=== PATIENT | female | born 1985 | race Asian ===

== ENCOUNTER 2018-05-10 05:52 | Inpatient (IN) ==
[2018-05-10] MEDS ORDERED: Morphine Sulfate PF Inj 5 MG/10 ML Ampul ONE (06:21)
[2018-05-10] MEDS ORDERED: Citric Acid/Sodium Citrate Liq 30 ML UDC PO SCH (06:45)
[2018-05-10 06:49] LABS: White Blood Count 8.4 th/mm3 (4.0-11.0)
[2018-05-10 06:50] LABS: Baso % (Auto) 0.5 % (0.0-2.0); Eos % (Auto) 0.6 % (0.0-4.0); Hematocrit 39.3 % (35.0-46.0); Hemoglobin 13.1 gm/dL (11.6-15.3); Lymph # (Auto) 1.6 th/mm3 (1.0-4.8); Lymph % (Auto) 19.7 % (9.0-44.0); Mean Corpuscular HGB Conc 33.4 % (32.0-36.0); Mean Corpuscular Hemoglobin 31.5 pg (27.0-34.0); Mean Corpuscular Volume 94.3 fL (80.0-100.0); Mean Platelet Volume 10.1 fL (7.0-11.0); Mono # (Auto) 0.6 th/mm3 (0.0-0.9); Mono % (Auto) 6.7 % (0.0-8.0); Neut # (Auto) 6.1 th/mm3 (1.8-7.7); Neut % (Auto) 72.5 % (16.0-70.0); Platelet Count 199 th/mm3 (150-450); Red Blood Count 4.17 mil/mm3 (4.00-5.30); Red Cell Distribution Width 15.5 % (11.6-17.2)
[2018-05-10 06:57] LABS: Bilirubin,Urine Negative (Negative); Clarity,Urine Clear (Clear); Color,Urine Yellow (Yellw/Straw); Glucose,Urine (UA) Negative (Negative); Leukocyte Esterase,Urine Negative (Negative); Mucus,Urine Few /lpf (Occasional); Nitrite,Urine Negative (Negative); Squamous Epithelial Cell,Urine 1 /hpf (0-5)
[2018-05-10] MEDS ORDERED: ceFAZolin Inj 2,000 MG in Sodium Chlor 0.9% Inj 80 ML IV.SIG SCH (07:00)
[2018-05-10 07:02] LABS: Amphetamine Screen,Urine Neg (Neg); Barbiturate Screen,Urine Neg (Neg); Cannabinoid Screen,Urine Neg (Neg); Cocaine Screen,Urine Neg (Neg); Opiate Screen,Urine Neg (Neg)
--- NOTE | 2018-05-10 07:14 | P.OBGPN ---
searched the PDMP, no matching pt information identified
[2018-05-10] MEDS ORDERED: Methylergonovine Inj 0.2 MG/ML Ampul ONE (08:13)
[2018-05-10 08:50] LABS: Cord Arterial Blood HCO3 21.6
[2018-05-10] MEDS ORDERED: Oxytocin 30 Units/500ml Premix 30 UNITS/500 ML BAG IV.SIG ONE (09:12)
[2018-05-10] MEDS ORDERED: Acetaminophen 325 MG Tablet PO PRN (09:12)
--- NOTE | 2018-05-10 09:20 | P.OP ---
Date of procedure: 05/10/18 Surgeon: Vipin Ansari MD Operation and Findings: Preoperative diagnosis: 1. Intrauterine at 39 weeks and 1 day 2. Unstable lie 3. Large lower uterine segment fibroid 4. GBS positive Postop diagnosis 1. Same as above with additional: 2. hemorrhage Procedure 1. Primary classical section, vacuum assisted delivery. Surgeon Dr. Vipin Ansari Automatic Mounter: [facility] labor and delivery scrub staff Findings: 1. Viable male at 0810, Apgars 2 and 8, normal anatomy. Umbilical arterial and venous cord gases collected and pending. 2. Intact placenta with three-vessel cord at 0811 3. Large intramural 10-12 cm right lateral lower uterine segment solitary fibroid Anesthesia: Spinal with Astramorph Specimen: Placenta donated Estimated blood loss: 1.5 L Fluid replacement: - 2500 cc lactated Ringer's and Pitocin -2 units of PRBCs Urine output: 200 cc clear urine Via [place] DVT prophylaxis: Sequential compression devices throughout the case Antibiotics: 2 g Ancef preoperatively Medications: 0.2 mg IM methargen 1 Counts: correct x2 Time out done: yes Disposition: Stable to PACU then to Indications: 33-year-old G1 now P1 001 who seen in outpatient setting for routine OB care by myself and had a fetus that was unstable in its lie, given the large lower uterine segment fibroid and concern for obstructed labor and complications that could arise with an emergent in labor the patient was counseled for a primary . Description of procedure: The patient was taken to the operating room and after spinal anesthesia was performed she was positioned and supine position with arms out in a left lateral tilt, the abdomen was prepped and draped in sterile fashion, a Pfannenstiel incision was made and carried down sharply to the fascia which was nicked on either side of the midline, this was extended bilaterally, the fascia was elevated superiorly and inferiorly and the rectus muscles were sharply dissected off the overlying fascia, the peritoneum was entered digitally and retracted laterally. A bladder flap was developed with Metzenbaum scissors at the lower uterine segment. After assessing the lower uterine segment I felt harinder this would not be the most optimal place to make her hysterotomy due to the high likelihood for difficult closure and increased morbidity, a classical incision was made sharply with a scalpel layer by layer. The uterine cavity was entered digitally and amniotic sac was ruptured bluntly. Inserted my hand the hysterotomy and the fetus was in a piked position head and feet both presenting. I had difficulty guiding the head to the hysterotomy with fundal pressure, a flat Kiwi vacuum was applied to the scalp and with gentle traction elevated to the hysterotomy with no pop offs. At this time with fundal pressure the head was delivered. With gentle downward and upward guidance the anterior and posterior shoulder was delivered, followed by the torso and lower extremities with ease, the had poor tone, the cord was clamped and cut and cord gases obtained. [place] handed off to to the staff. Pitocin was bolused and with uterine massage and cord traction the placenta was delivered, uterus was cleared of clot and debris, poor tone was appreciated and 1 dose of IM methargen was given, the uterus was exteriorized and the hysterotomy was closed in layers. From the lower uterine segment cephalad was closed with 3 layers of 3-0 Vicryl in the running unlocked fashion and the serosa closed with 3-0 chromic. The vertical lower uterine segment portion was closed with 2 layers of 0 Vicryl in a running unlocked fashion. The serosa was not closed as it was to far by the fibroid. The abdomen and hysterotomy were irrigated, inspected, and found to be hemostatic, fracture reassurance a Bovie and sheet of Surgicel was placed over the lower uterine segment. The fascia was closed from left to right with 0 running delayed absorbable suture. The subcutaneous tissue was irrigated, inspected, hemostasis was appreciated. The skin was closed with 3-0 Monocryl and then a dressing was applied and the patient tolerated procedure well was transferred to PACU. ]
--- NOTE | 2018-05-10 09:29 | P.OBGPN ---
Received call from nursing in PACU stating that patient has noticeable cardiac arrhythmia, per the nurse, anesthesia appreciated this prior to while in the OR. I was not aware of this during or after the case the patient has no prior cardiac history. Patient's vitals are stable and doing well in PACU and has no complaints out of the ordinary after a . Will consult cardiology and obtain an EKG. Patient received 2 units of blood Intra-Op, will type and cross for an additional 2 if needed.
[2018-05-10] MEDS ORDERED: Ketorolac Inj 30 MG/ML (IVP) Vial ONE (10:36)
[2018-05-10] MEDS: Ketorolac Inj 30 MG/ML (IVP) Vial IV.PUSH SCH ×3 (10:40→23:02)
[2018-05-10] MEDS ORDERED: Oxytocin 30 Units/500ml Premix 30 UNITS/500 ML BAG ONE (10:52)
[2018-05-10 10:53] LABS: Hematocrit 44.7 % (35.0-46.0); Hemoglobin 15.2 gm/dL (11.6-15.3); Mean Corpuscular HGB Conc 34.1 % (32.0-36.0); Mean Corpuscular Hemoglobin 31.1 pg (27.0-34.0); Mean Corpuscular Volume 91.3 fL (80.0-100.0); Mean Platelet Volume 10.3 fL (7.0-11.0); Platelet Count 193 th/mm3 (150-450); Red Blood Count 4.89 mil/mm3 (4.00-5.30); Red Cell Distribution Width 15.7 % (11.6-17.2); White Blood Count 13.7 th/mm3 (4.0-11.0)
[2018-05-10 11:08] LABS: Anion Gap 6 meq/L (5-15); Blood Urea Nitrogen 7 mg/dL (7-18); Calcium 8.1 mg/dL (8.5-10.1); Carbon Dioxide 26.9 meq/L (21.0-32.0); Chloride 108 meq/L (98-107); Glomerular Filtration Rate Greater Than 89 mL/min (>89); Glucose,Random 108 mg/dL (74-106); Potassium 4.5 meq/L (3.5-5.1); Sodium 141 meq/L (136-145)
[2018-05-10 11:14] LABS: Activated Partial Thrombo Time 28.1 sec (24.3-30.1); Prothrombin Time 9.7 sec (9.8-11.6)
[2018-05-10] MEDS ORDERED: Naloxone Inj 0.4 MG/ML Vial IV.PUSH PRN (11:23)
[2018-05-10] MEDS ORDERED: Lidocaine PF 1% Inj 5 ML Syringe INFILTRATN ONE (12:00)
[2018-05-10] MEDS ORDERED: Sodium Chlor 0.9% Inj 500 ML IV.SIG ONE (12:00)
[2018-05-10] MEDS ORDERED: Phenylephrine/NS 1000 MCG/10ML Syringe IV.PUSH ONE (12:00)
--- NOTE | 2018-05-10 12:39 | ECG ---
Date Performed: 05/10/2018 Time Performed: 10:07:49 PTAGE: 33 years EKG: Sinus rhythm WITH FREQUENT VENTRICULAR PREMATURE COMPLEXES LEFT ATRIAL ENLARGEMENT ABNORMAL ECG NO PREVIOUS TRACING DOCTOR: Louis Torres Interpretating Date/Time 05/10/2018 12:36:16
[2018-05-10] MEDS ORDERED: Oxytocin 30 Units/500ml Premix 30 UNITS/500 ML BAG IV.SIG PRN (14:12)
--- NOTE | 2018-05-10 14:16 | P.CONCA ---
History of Present Illness Service: [facility] cardiology Consult date: 05/10/18 Requesting Physician: Vipin Ansari Reason for Consult: arrhythmia Primary Care Provider: UNKNOWN Chief Complaint: abnormal ecg History of Present Illness: Patient is non-Bulgarian speaking and we used a Latvian language line for HPI. 33 yo lady with unremarkable past medical history who delivered new baby via uncomplicated earlier this morning was noted by staff to have a "cardiac arrhythmia." Apparently this was noted by anesthesia prior to delivery this am as well. ECG reveals NSR with ventricular quadrigeminy with no st-t wave abnormality. QTc is normal. Patient is awake and comfortable and has no complaints. She was initially upon arrival. She denies any palpitations, chest pain, dyspnea or syncope in history or current. Laboratories from yesterday are unremarkable with K+ 4.5 and normal labs by report including thyroid function. No family history of cardiovascular disease. She is a lifelong nonsmoker and no alcohol. Review of Systems All other systems reviewed negative except as stated in HPI Medications and Allergies Active Medications: Active Medications Acetaminophen (Tylenol) 650 mg PO Q6H PRN PRN Reason: PAIN SCALE 1 TO 2 Citric Acid/Sodium Citrate (Sodium Citrate/Citric Acid Liq) 30 ml PO PLUMBING INSTRUCTOR [facility] Stop: 05/14/18 06:44 Last Admin: 05/10/18 07:31 Dose: 30 ml Diphenhydramine HCl (Benadryl Inj) 25 mg IV.PUSH Q6H PRN PRN Reason: MILD TO MODERATE ITCHING Stop: 05/11/18 11:22 Diphenhydramine HCl (Benadryl) 50 mg PO Q6H PRN PRN Reason: MILD TO MODERATE ITCHING Stop: 05/11/18 11:22 Diphtheria/Pertussis/Tetanus Vacc (Boostrix Vaccine Inj) 0.5 ml IM .ONCE ONE Stop: 05/11/18 16:01 Cefazolin Sodium 2,000 mg/ (Sodium Chloride) 100 mls @ 200 mls/hr IV.SIG PLUMBING INSTRUCTOR [facility] Stop: 05/14/18 08:00 Lactated Ringer's (Lr 1000 Ml Inj) 1,000 mls @ 150 mls/hr IV.CONT .Q6H40M [facility] Last Admin: 05/10/18 06:54 Dose: 150 mls/hr Lactated Ringer's (Lr 1000 Ml Inj) 1,000 mls @ 100 mls/hr IV.CONT .Q10H [facility] Stop: 05/11/18 10:11 Oxytocin (Pitocin 30 Units/Ns 500 Ml Premix) 30 units in 500 mls @ 100 mls/hr IV.SIG ONCE ONE Stop: 05/10/18 14:11 Last Admin: 05/10/18 11:18 Dose: 100 mls/hr Oxytocin (Pitocin 30 Units/Ns 500 Ml Premix) 30 units in 500 mls @ 100 mls/hr IV.SIG PRN PRN PRN Reason: Heavy bleeding Stop: 05/11/18 14:11 Ibuprofen (Motrin) 800 mg PO Q8H PRN PRN Reason: cramping Ketorolac Tromethamine (Toradol Inj) 30 mg IV.PUSH Q6H [facility] Stop: 05/11/18 04:01 Last Admin: 05/10/18 10:40 Dose: 30 mg Magnesium Oxide (Mag-Ox) 400 mg PO DAILY [facility] Measles/Mumps/Rubella Vaccine Live (M-M-R Ii Vaccine Inj) 0.5 ml SQ .ONCE ONE Stop: 05/11/18 16:01 Miscellaneous Information ([facility]) 1 each OTHER UNSCH PRN PRN Reason: SEE LABEL COMMENTS Stop: 05/11/18 11:22 Miscellaneous Information ([facility]) 1 each OTHER UNSCH PRN PRN Reason: SEE LABEL COMMENTS Stop: 05/11/18 11:22 Naloxone HCl (Narcan Inj) 0.4 mg IV.PUSH UNSCH PRN PRN Reason: SEE LABEL COMMENTS Stop: 05/11/18 11:22 Ondansetron HCl (Zofran Inj) 4 mg IV.PUSH Q6H PRN PRN Reason: NAUSEA OR VOMITING Oxycodone/Acetaminophen (Percocet 5/325 Mg) 1 tab PO Q4H PRN PRN Reason: PAIN SCALE 3 TO 5 Oxycodone/Acetaminophen (Percocet 5/325 Mg) 2 tab PO Q4H PRN PRN Reason: PAIN SCALE 6 TO 10 Sodium Chloride (Ns Flush) 2 ml IV.FLUSH PRN PRN PRN Reason: FLUSH AFTER USING IV ACCESS Sodium Chloride (Ns Flush) 2 ml IV.FLUSH BID [facility] Allergies Allergy/AdvReac Type Severity Reaction Status Date / Time No Known Allergies Allergy Unverified 05/10/18 06:08 Home Medications Medication Instructions Recorded Confirmed Type No Known Home Medications 05/10/18 05/10/18 History Exam Vital signs: Vital Signs 05/10/18 06:13 05/10/18 06:14 05/10/18 09:25 Temperature 97.9 F 96.6 F L Pulse Rate 78 89 Respiratory Rate 18 16 Blood Pressure 115/41 L 105/65 05/10/18 09:36 05/10/18 09:54 05/10/18 10:05 Temperature Pulse Rate 97 H 98 H 99 H Respiratory Rate 16 18 18 Blood Pressure 96/55 L 107/65 115/65 05/10/18 10:22 05/10/18 10:34 05/10/18 10:40 Temperature 98.1 F Pulse Rate 98 H 96 H Respiratory Rate 18 18 Blood Pressure 120/69 110/57 L 05/10/18 11:25 Temperature 98.0 F Pulse Rate 77 Respiratory Rate 18 Blood Pressure 108/55 L Intake & Output 05/09/18 05/10/18 05/10/18 18:59 06:59 18:59 Intake Total 400 / 400 Balance 400 / 400 Weight 76.204 kg Intake: Intake (Blood Product) Amt 400 / 400 Rbc As-3 Leukoreduced Unit 400 / 400 [id number] Rbc As-3 Leukoreduced Unit 0 / 0 [id number] Narrative: GENERAL: AOx3, comfortable appearing, speaking full sentences. Talley cath in place SKIN: Warm and dry. HEAD: Atraumatic. Normocephalic. EYES: Pupils equal and round. No scleral icterus. No injection or drainage. ENT: No nasal bleeding or discharge. Mucous membranes pink and moist. NECK: Trachea midline. No JVD. CARDIOVASCULAR: Regularly irregular rhythm with regular rate, no murmur, rub or gallops. RESPIRATORY: No accessory muscle use. Clear to auscultation. Breath sounds equal bilaterally. NEUROLOGICAL: Awake and alert. No obvious cranial nerve deficits. Normal speech. PSYCHIATRIC: Appropriate mood and affect; insight and judgment normal. Results 05/10/18 10:30 05/10/18 10:30 Coagulation 05/10/18 Range/Units 10:30 PT 9.7 L (9.8-11.6) sec APTT 28.1 (24.3-30.1) sec CBC 05/10/18 05/10/18 Range/Units 06:26 10:30 WBC 8.4 13.7 H D (4.0-11.0) th/mm3 RBC 4.17 4.89 (4.00-5.30) mil/mm3 Hgb 13.1 15.2 D (11.6-15.3) gm/dL Hct 39.3 44.7 (35.0-46.0) % Plt Count 199 193 (150-450) th/mm3 Neut # (Auto) 6.1 (1.8-7.7) th/mm3 Lymph # (Auto) 1.6 (1.0-4.8) th/mm3 Ray # (Auto) 0.6 (0.0-0.9) th/mm3 Eos # (Auto) 0.0 (0.0-0.4) th/mm3 Baso # (Auto) 0.0 (0.0-0.2) th/mm3 Comprehensive Metabolic Panel 05/10/18 Range/Units 10:30 Sodium 141 (136-145) meq/L Potassium 4.5 (3.5-5.1) meq/L Chloride 108 H (98-107) meq/L Carbon Dioxide 26.9 (21.0-32.0) meq/L BUN 7 (7-18) mg/dL Creatinine 0.49 L (0.50-1.00) mg/dL Calcium 8.1 L (8.5-10.1) mg/dL Intake and Output 05/09/18 05/10/18 05/10/18 22:59 06:59 14:59 Intake Total 400 / 400 Balance 400 / 400 Intake: Intake (Blood Product) Amt 400 / 400 Rbc As-3 Leukoreduced Unit 400 / 400 [id number] Rbc As-3 Leukoreduced Unit 0 / 0 [id number] Other: Weight 76.204 kg Assessment and Plan - Plan Assessment: Ventricular Quadrigeminy - this is a benign rhythm. Typically stress induced and self-resolving. Will obtain a transthoracic echocardiogram to rule out structural heart disease. May start supplemental magnesium oxide 400mg daily and repeat TFTs. If studies are normal, no further evaluation is warranted. Will notify patient of echocardiogram results and otherwise will sign off for now. Please call with any further questions.
[2018-05-10 14:44] LABS: Magnesium 1.7 mg/dL (1.5-2.5)
[2018-05-10 14:53] LABS: Thyroid Stimulating Hormone 2.29 uIU/mL (0.358-3.740)
[2018-05-10] MEDS: Magnesium Oxide 400 MG Tablet PO SCH (15:59)
[2018-05-11] MEDS: Ketorolac Inj 30 MG/ML (IVP) Vial IV.PUSH SCH (04:25)
[2018-05-11 05:55] LABS: Hematocrit 33.2 % (35.0-46.0); Hemoglobin 11.4 gm/dL (11.6-15.3); Mean Corpuscular HGB Conc 34.2 % (32.0-36.0); Mean Corpuscular Volume 90.6 fL (80.0-100.0); Platelet Count 167 th/mm3 (150-450); Red Blood Count 3.67 mil/mm3 (4.00-5.30); Red Cell Distribution Width 16.5 % (11.6-17.2)
--- NOTE | 2018-05-11 06:40 | MH ---
cc: Vipin Ansari MD DATE OF ADMISSION: 05/10/2018 CHIEF COMPLAINT: Scheduled section. HISTORY OF PRESENT ILLNESS: This patient is a 33-year-old G1, who will be at 40 weeks and 1 day at the time of her admission. She is dated by her sure LMP, consistent with a 13-week ultrasound with estimated due date of 05/09/2018. Any changes or additions to this H and P will be added as a separate note at the time of her admission. Her has been complicated by a lower uterine segment fibroid, varicella virus nonimmune status and glucose intolerance. To note, she speaks Micronesian and her translates for her. PAST MEDICAL HISTORY: 1. Uterine Fibroid MEDICATIONS: vitamins. ALLERGIES: NKDA. PAST SURGICAL HISTORY: Appendectomy. OBSTETRICAL HISTORY: G1. 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 SEXUALLY TRANSMITTED DISEASES: The patient denies. SOCIAL HISTORY: The patient denies. FAMILY HISTORY: No pertinent positive family history. PHYSICAL EXAMINATION: Based on the encounter from 05/08/2018: VITAL SIGNS: Blood pressure 100/60, weight 166 pounds. GENERAL: Alert and oriented x3, resting in the bed. LUNGS: Clear to auscultation bilaterally. CARDIOVASCULAR: Regular rate and rhythm. No murmurs, rubs or gallops. ABDOMEN: Soft, gravid, nontender. GENITOURINARY: Deferred. EXTREMITIES: No clubbing, cyanosis or edema. LABORATORY DATA: 1. Blood work on 11/02/2017: Hemoglobin of 14.2, platelets 299. Blood type A positive, antibody negative, varicella nonimmune, rubella immune, VDRL nonreactive, HIV negative, cystic fibrosis screen negative. Hepatitis B surface antigen negative. Cystic fibrosis screen negative, quad screen negative. TSH 0.50. Sickle cell screen negative, Pap smear, negative. 2. Repeat blood work on 02/21/2018: Hemoglobin 12.2, one-hour Glucola 166; followup 3-hour Glucola 81,190,141,122. 3. GBS positive. ASSESSMENT AND PLAN: This patient is a 33-year-old G1 who will be at 40 weeks and 1 day by her LMP consistent with a 13-week ultrasound with estimated due date of 05/09/2018, here for primary due to malpresentation. 1. Intrauterine . Will be placed on monitoring upon admission. - estimated weight on 04/24/2018: 3326 grams, 75th percentile, placenta posterior male fetus. 2. malpresentation/uterine fibroid: Large 9 cm left lower uterine segment fibroid appreciated throughout her . No growth. Most recent ultrasound on 05/08/2018 revealed stability of the fibroid, but fetus in a breech oblique position. We discussed options and the patient elected for primary . I feel this is the best and safest option for her. Will be scheduled for primary on 05/10/2018. Discussed risks, benefits and expected outcomes for . We will type and cross x2 on admission. 3. Group beta streptococcus positive, irrelevant given . 4. Varicella nonimmune, vaccine . MD MANAV Low/malia/jah , 12:03 PM , 12:13 PM NEHA
--- NOTE | 2018-05-11 07:59 | P.PNOB ---
Subjective Post op day: 1 Interval history: Doing well, pain controlled, ambulating without difficulty, voiding spontaneously, tolerating diet. Vaginal bleeding less than menses. Objective Vital Signs/I&O: Vital Signs 05/10/18 09:25 05/10/18 09:36 05/10/18 09:54 Temperature 96.6 F L Pulse Rate 89 97 H 98 H Respiratory Rate 16 16 18 Blood Pressure 105/65 96/55 L 107/65 05/10/18 10:05 05/10/18 10:22 05/10/18 10:34 Temperature 98.1 F Pulse Rate 99 H 98 H Respiratory Rate 18 18 Blood Pressure 115/65 120/69 05/10/18 10:40 05/10/18 11:25 05/10/18 16:10 Temperature 98.0 F Pulse Rate 96 H 77 56 L Respiratory Rate 18 18 16 Blood Pressure 110/57 L 108/55 L 106/51 L 05/10/18 18:30 05/10/18 20:00 05/10/18 21:30 Temperature 98.3 F Pulse Rate 56 L 61 Respiratory Rate 20 18 18 Blood Pressure 93/50 L 106/63 05/10/18 23:10 05/11/18 02:00 05/11/18 04:00 Temperature 97.5 F L 98.8 F Pulse Rate 67 57 L Respiratory Rate 18 16 16 Blood Pressure 99/49 L 100/55 L Intake & Output 05/10/18 05/11/18 05/11/18 18:59 06:59 18:59 Intake Total 400 / 400 Balance 400 / 400 Intake: Intake (Blood Product) Amt 400 / 400 Rbc As-3 Leukoreduced Unit 400 / 400 [id number] Rbc As-3 Leukoreduced Unit 0 / 0 [id number] Result Diagrams: 05/11/18 05:31 05/10/18 10:30 Objective Remarks: GENERAL: Well-nourished, well-developed patient. CARDIOVASCULAR: Regular rate and rhythm without murmurs, gallops, or rubs. RESPIRATORY: Breath sounds equal bilaterally. No accessory muscle use. ABDOMEN/GI: Abdomen soft, non-tender, bowel sounds present. Bandage: Clean, dry and intact. Fundus: Firm, non-tender at umbilicus. GENITOURINARY: Light to moderate bleeding. EXTREMITIES: No cyanosis or edema, non-tender, without signs of DVT. Medications and IVs: Active Medications Acetaminophen (Tylenol) 650 mg PO Q6H PRN PRN Reason: PAIN SCALE 1 TO 2 Citric Acid/Sodium Citrate (Sodium Citrate/Citric Acid Liq) 30 ml PO [facility] Stop: 05/14/18 06:44 Last Admin: 05/10/18 07:31 Dose: 30 ml Diphenhydramine HCl (Benadryl Inj) 25 mg IV.PUSH Q6H PRN PRN Reason: MILD TO MODERATE ITCHING Stop: 05/11/18 11:22 Diphenhydramine HCl (Benadryl) 50 mg PO Q6H PRN PRN Reason: MILD TO MODERATE ITCHING Stop: 05/11/18 11:22 Diphtheria/Pertussis/Tetanus Vacc (Boostrix Vaccine Inj) 0.5 ml IM .ONCE ONE Stop: 05/11/18 16:01 Cefazolin Sodium 2,000 mg/ (Sodium Chloride) 100 mls @ 200 mls/hr IV.SIG [facility] Stop: 05/14/18 08:00 Lactated Ringer's (Lr 1000 Ml Inj) 1,000 mls @ 150 mls/hr IV.CONT .Q6H40M [facility] Last Admin: 05/11/18 06:45 Dose: Not Given Lactated Ringer's (Lr 1000 Ml Inj) 1,000 mls @ 100 mls/hr IV.CONT .Q10H [facility] Stop: 05/11/18 10:11 Last Admin: 05/10/18 19:05 Dose: 100 mls/hr Oxytocin (Pitocin 30 Units/Ns 500 Ml Premix) 30 units in 500 mls @ 100 mls/hr IV.SIG PRN PRN PRN Reason: Heavy bleeding Stop: 05/11/18 14:11 Ibuprofen (Motrin) 800 mg PO Q8H PRN PRN Reason: cramping Magnesium Oxide (Mag-Ox) 400 mg PO DAILY [facility] Last Admin: 05/10/18 15:59 Dose: 400 mg Measles/Mumps/Rubella Vaccine Live (M-M-R Ii Vaccine Inj) 0.5 ml SQ .ONCE ONE Stop: 05/11/18 16:01 Miscellaneous Information ([facility]) 1 each OTHER UNSCH PRN PRN Reason: SEE LABEL COMMENTS Stop: 05/11/18 11:22 Miscellaneous Information ([facility]) 1 each OTHER UNSCH PRN PRN Reason: SEE LABEL COMMENTS Stop: 05/11/18 11:22 Naloxone HCl (Narcan Inj) 0.4 mg IV.PUSH UNSCH PRN PRN Reason: SEE LABEL COMMENTS Stop: 05/11/18 11:22 Ondansetron HCl (Zofran Inj) 4 mg IV.PUSH Q6H PRN PRN Reason: NAUSEA OR VOMITING Oxycodone/Acetaminophen (Percocet 5/325 Mg) 1 tab PO Q4H PRN PRN Reason: PAIN SCALE 3 TO 5 Oxycodone/Acetaminophen (Percocet 5/325 Mg) 2 tab PO Q4H PRN PRN Reason: PAIN SCALE 6 TO 10 Last Admin: 05/11/18 06:41 Dose: 2 tab Sodium Chloride (Ns Flush) 2 ml IV.FLUSH PRN PRN PRN Reason: FLUSH AFTER USING IV ACCESS Sodium Chloride (Ns Flush) 2 ml IV.FLUSH BID [facility] Last Admin: 05/10/18 23:04 Dose: Not Given Assessment and Plan - Plan 33-year-old status post primary classical at 39 weeks 0 days secondary to large lower uterine segment fibroid and unstable lie 1. Postoperative day #1: Afebrile, vital signs stable, and hemoglobin noted and appropriate. Will repeat CBC tomorrow. Patient shows no signs of hypovolemia at this time. She did receive 2 units intraoperatively yesterday due to concern for excessive blood loss however I believe this was an overestimate. Anticipate d/c home in next 48hrs. -Male , discussed options for circumcision, they did not pay, offered circumcision the office in the next 2-3 weeks. They will call if they desire. 2. Classical : Discussed implications on her future pregnancies and requirement for at 36-37 weeks, 3. Fibroid uterus: Discussed that may recommend removal of fibroid to allow easier access to lower uterine segment with future pregnancies 4. Ventricular quadrigeminy: Patient had palpitations at time of her admission yesterday, her heart rate is normalized now, normal EKG other than aforementioned, TFTs and BMP WNL, status post cardiology consult, echo planned for today.
[2018-05-11] MEDS: Magnesium Oxide 400 MG Tablet PO SCH (10:57)
--- NOTE | 2018-05-11 13:43 | ECHRPT ---
Indication: CARDIOMYOPATHY CONCLUSIONS Normal left ventricular size. Wall thickness is normal. The left ventricular systolic function is mildly reduced with an estimated ejection fraction of 45%. Global hypokinesis. Trace mitral valve regurgitation. There is trace tricuspid valve regurgitation. The estimated pulmonary arterial pressure is 24 mmHg. BP: / HR: Rhythm: Other MEASUREMENTS (Male / Female) Normal Values Technical Quality: 2D ECHO LV Diastolic Diameter PLAX 5.0 cm 4.2 - 5.9 / 3.9 - 5.3 cm LV Systolic Diameter PLAX 3.5 cm IVS Diastolic Thickness 0.8 cm 0.6 - 1.0 / 0.6 - 0.9 cm LVPW Diastolic Thickness 0.8 cm 0.6 - 1.0 / 0.6 - 0.9 cm LV Relative Wall Thickness 0.3 RV Internal Dim ED PLAX 3.3 cm LVOT Diameter 1.9 cm LA Systolic Diameter LX 3.7 cm 3.0 - 4.0 / 2.7 - 3.8 cm LV Ejection Fraction MOD 4C 68.8 % LV Ejection Fraction 4C AL 69.3 % M-MODE Aortic Root Diameter MM 1.3 cm LA Systolic Diameter MM 3.7 cm LA Ao Ratio MM 2.8 AV Cusp Separation MM 1.8 cm DOPPLER AV Peak Velocity 136.0 cm/s AV Peak Gradient 7.4 mmHg LVOT Peak Velocity 110.0 cm/s LVOT Peak Gradient 4.8 mmHg AV Area Cont Eq pk 2.3 cm MV Area PHT 3.6 cm Mitral E Point Velocity 110.0 cm/s Mitral A Point Velocity 67.1 cm/s Mitral E to A Ratio 1.6 LV E' Lateral Velocity 11.7 cm/s Mitral E to LV E' Lateral Ratio 9.4 LV E' Septal Velocity 9.0 cm/s Mitral E to LV E' Septal Ratio 12.3 TR Peak Velocity 193.0 cm/s TR Peak Gradient 14.9 mmHg Right Atrial Pressure 10.0 mmHg Pulmonary Artery Systolic Pressu 24.9 mmHg Right Ventricular Systolic Press 24.9 mmHg PV Peak Velocity 115.0 cm/s PV Peak Gradient 5.3 mmHg FINDINGS LEFT VENTRICLE Normal left ventricular size. Wall thickness is normal. The left ventricular systolic function is mildly reduced with an estimated ejection fraction of 45%. Global hypokinesis. RIGHT VENTRICLE Normal right ventricular size and systolic function. LEFT ATRIUM The left atrial size is normal. RIGHT ATRIUM The right atrial size is normal. ATRIAL SEPTUM Normal atrial septal thickness without atrial level shunting by limited color doppler interrogation. AORTA The aortic root and proximal ascending aorta are normal in size on limited imaging. MITRAL VALVE Structurally normal mitral valve. Trace mitral valve regurgitation. AORTIC VALVE The aortic valve is not well visualized. No aortic valve stenosis or regurgitation. TRICUSPID VALVE Structurally normal tricuspid valve. There is trace tricuspid valve regurgitation. The estimated pulmonary arterial pressure is 24 mmHg. PULMONARY VALVE Trivial pulmonary valve regurgitation. VESSELS The inferior vena cava is normal in size. PERICARDIUM No pericardial effusion. Klaus Roger MD (Electronically Signed) Final Date:11 May 2018 13:42
[2018-05-11] MEDS ORDERED: Measles/Mumps/Rubella Vaccine Inj 0.5 ML Vial SQ ONE (16:00)
[2018-05-11] MEDS ORDERED: Diphtheria/Tetanus/Pertussis Vaccine Inj 0.5 ML Syringe IM ONE (16:00)
[2018-05-12 06:32] LABS: Hematocrit 33.6 % (35.0-46.0); Hemoglobin 11.4 gm/dL (11.6-15.3); Mean Corpuscular HGB Conc 34.1 % (32.0-36.0); Mean Corpuscular Hemoglobin 31.2 pg (27.0-34.0); Mean Corpuscular Volume 91.5 fL (80.0-100.0); Platelet Count 181 th/mm3 (150-450); Red Blood Count 3.67 mil/mm3 (4.00-5.30); Red Cell Distribution Width 16.6 % (11.6-17.2); White Blood Count 9.6 th/mm3 (4.0-11.0)
--- NOTE | 2018-05-12 07:46 | P.PNOB ---
Subjective Post op day: 2 Interval history: Doing well, pain improving, vaginal bleeding less than menses, ambulating without difficulty, no chest pain, shortness of breath, orthopnea. Tolerating diet without nausea or vomiting. Objective Vital Signs/I&O: Vital Signs 05/11/18 08:00 05/11/18 20:00 Temperature 97.8 F 98.1 F Pulse Rate 83 43 L Respiratory Rate 18 18 Blood Pressure 107/51 L 105/45 L Result Diagrams: 05/12/18 06:09 05/10/18 10:30 Objective Remarks: GENERAL: Well-nourished, well-developed patient. CARDIOVASCULAR: Regular rate and rhythm without murmurs, gallops, or rubs. RESPIRATORY: Breath sounds equal bilaterally. No accessory muscle use. ABDOMEN/GI: Abdomen soft, non-tender, bowel sounds present. Bandage Clean, dry and intact. Fundus: Firm, non-tender at umbilicus. GENITOURINARY: Light to moderate bleeding. EXTREMITIES: No cyanosis or edema, non-tender, without signs of DVT. Medications and IVs: Active Medications Acetaminophen (Tylenol) 650 mg PO Q6H PRN PRN Reason: PAIN SCALE 1 TO 2 Citric Acid/Sodium Citrate (Sodium Citrate/Citric Acid Liq) 30 ml PO PHYSICAL OPTICS TEACHER [facility] Stop: 05/14/18 06:44 Last Admin: 05/10/18 07:31 Dose: 30 ml Cefazolin Sodium 2,000 mg/ (Sodium Chloride) 100 mls @ 200 mls/hr IV.SIG [employer]ICAL OPTICS TEACHER [facility] Stop: 05/14/18 08:00 Lactated Ringer's (Lr 1000 Ml Inj) 1,000 mls @ 150 mls/hr IV.CONT .Q6H40M [facility] Last Admin: 05/12/18 07:37 Dose: Not Given Ibuprofen (Motrin) 800 mg PO Q8H PRN PRN Reason: cramping Last Admin: 05/12/18 07:33 Dose: 800 mg Magnesium Oxide (Mag-Ox) 400 mg PO DAILY [facility] Last Admin: 05/11/18 10:57 Dose: 400 mg Ondansetron HCl (Zofran Inj) 4 mg IV.PUSH Q6H PRN PRN Reason: NAUSEA OR VOMITING Oxycodone/Acetaminophen (Percocet 5/325 Mg) 1 tab PO Q4H PRN PRN Reason: PAIN SCALE 3 TO 5 Last Admin: 05/11/18 10:57 Dose: 1 tab Oxycodone/Acetaminophen (Percocet 5/325 Mg) 2 tab PO Q4H PRN PRN Reason: PAIN SCALE 6 TO 10 Last Admin: 05/12/18 07:33 Dose: 2 tab Sodium Chloride (Ns Flush) 2 ml IV.FLUSH PRN PRN PRN Reason: FLUSH AFTER USING IV ACCESS Sodium Chloride (Ns Flush) 2 ml IV.FLUSH BID MARTÍN Last Admin: 05/12/18 07:35 Dose: Not Given Assessment and Plan - Plan 33-year-old status post primary classical at 39 weeks 0 days secondary to large lower uterine segment fibroid and unstable lie 1. Postoperative day #2: Afebrile, vital signs stable, AM Hb appropriate. Anticipate d/c home tomorrow Male , circ in office, they did not pay 2. Classical : Discussed implications on her future pregnancies and requirement for at 36-37 weeks, 3. Fibroid uterus: Discussed that may recommend removal of fibroid to allow easier access to lower uterine segment with future pregnancies 4. Ventricular quadrigeminy: Patient had palpitations at time of her admission , her heart rate is mostly normal, some episodes of bradycardia, patient asymptomatic. Her echo showed EF of 45%, will touch base with cardiology to make sure the do not suggest any intervention, Dx for cardiomyopathy is less than 45% - normal EKG other than aforementioned, TFTs and BMP WNL,
[2018-05-12] MEDS: Magnesium Oxide 400 MG Tablet PO SCH (09:08)
--- NOTE | 2018-05-12 10:01 | P.PNCA ---
Subjective Interval history: Unremarkable recovery thus far. No interval events. Physical Exam Vital signs: Vital Signs 05/11/18 20:00 05/12/18 08:00 Temperature 98.1 F 98.3 F Pulse Rate 43 L 60 Respiratory Rate 18 20 Blood Pressure 105/45 L 104/58 L Assessment and Plan - Plan Assessment: Ventricular Quadrigeminy - this is a benign rhythm. Typically stress induced and self-resolving. Will obtain a transthoracic echocardiogram to rule out structural heart disease. Continue supplemental magnesium oxide 400mg daily. No further evaluation is warranted at this time. Recommend f/u evaluation of ventricular ectopy with PCP or cardiology in next few weeks as an outpatient after she recovers. Patient had echocardiogram which was read as Mildly depressed LVEF 45%. I have reviewed the echocardiogram myself and disagree with this assessment. LVEF calculated by Ibarra's byplane method was 57.9% which visually looks correct. I believe that this low EF was reported due to visual estimation in a post-PVC beat as the patient has frequent ventricular ectopy. She has frequent sinus bradycardia and low-normal BP and thus will defer beta- shayna therapy at this time as there is currently no clear clinical benefit as the patient is also asymptomatic.
[2018-05-13] MEDS: Magnesium Oxide 400 MG Tablet PO SCH (09:08)
--- NOTE | 2018-05-13 09:30 | P.DS ---
Date of admission: 05/10/18 05:52 Primary care physician: UNKNOWN Brief History from admission: 33-year-old who underwent a scheduled primary classical at 39 weeks due to malpresentation and large lower uterine segment fibroid. Intraoperatively she received 2 units of blood, postoperatively she did well. She did have cardiac arrhythmia that was appreciated at time of her admission, she was asymptomatic, she was seen by cardiology and she was diagnosed with ventricular quadrigeminy, she had an echocardiogram that was normal. Plan per cardiology was to have her followup several weeks DS: Medications - Discharge Medications Prescriptions: ibuprofen [Motrin IB] 600 mg PO TID-QID PRN #30 tab PRN Reason: Pain oxycodone-acetaminophen [Percocet] 1 tab PO Q4-6H PRN #15 tab PRN Reason: Pain DS: Summary Hospital Course: See brief history - Time Spent with Patient Total time spent providing and/or coordinating discharge services: Less than 30 minutes Exam Vital signs: Vital Signs 05/12/18 20:00 Temperature 98.0 F Pulse Rate 82 Respiratory Rate 17 Blood Pressure 118/73 Results Procedures completed during hospitalization: Primary classical Labs on day of discharge: Labs from last 24 hours 05/10/18 09:25 MTS Gel Crossmatch See Detail Discharge Plan - Discharge Disposition Patient Disposition: 01 Discharge Home - Discharge Condition Condition: Good - Discharge Order Discharge Orders: Discharge Order (Routine); Ordered 05/13/18 Ordered By: Vipin Ansari - Discharge Details Anticipated Discharge Date: 05/13/18 - Physicians Team Primary Care Provider: UNKNOWN, Attending Provider: Vipin Ansari Other Providers: Santy Benito MD - Rxs /Orders / Referrals /Forms Prescriptions: New ibuprofen [Motrin IB] 200 mg Tablet 600 mg PO TID-QID PRN (Reason: Pain) Qty: 30 RF: 1 oxycodone-acetaminophen [Percocet] 5-325 mg Tablet 1 tab PO Q4-6H PRN (Reason: Pain) Qty: 15 RF: 0 No Action No Known Home Medications Referrals: Vipin Ansari MD [Physician] - See Instructions - Discharge Instructions Patient Printed Instructions: (DC) - Post Discharge Care Plan Care Plan Goals: Congratulations on your new baby! We want your recovery to be de [place] and trouble free. Please Report the Following Symptoms to Your Doctor: -Temperature above 100.5 degrees -Redness of incision or excessive or foul smelling drainage -Unusual pain or calf pain -Increased vaginal bleeding -Painful or difficulty urinating -Feelings of extreme sadness or anxiety Goals to Promote Your Health * To prevent worsening of your condition and complications * To maintain your health at the optimal level Directions to Meet Your Goals Take your medications as prescribed Follow your dietary instruction Follow activity as directed Ensure plenty of rest for recovery Drink fluids for hydration Keep your appointments as scheduled Take your immunizations and boosters as scheduled If your symptoms worsen call your OB Physician, or go to an Urgent Care Center or Emergency Room Smoking is Dangerous to your health. Avoid second hand smoke Call the 24-hour crisis hotline for domestic abuse at
--- NOTE | 2018-05-13 09:34 | P.PNOB ---
Subjective Post op day: 3 Interval history: Doing well, ambulating without difficulty, voiding spontaneously, tolerating diet, no nausea vomiting, vaginal bleeding less than menses Objective Vital Signs/I&O: Vital Signs 05/12/18 20:00 Temperature 98.0 F Pulse Rate 82 Respiratory Rate 17 Blood Pressure 118/73 Result Diagrams: 05/12/18 06:09 05/10/18 10:30 Objective Remarks: GENERAL: Well-nourished, well-developed patient. CARDIOVASCULAR: Regular rate and rhythm without murmurs, gallops, or rubs. RESPIRATORY: Breath sounds equal bilaterally. No accessory muscle use. ABDOMEN/GI: Abdomen soft, non-tender, bowel sounds present. Incision: Clean, dry and intact. Fundus: Firm, non-tender at umbilicus. GENITOURINARY: Light to moderate bleeding. EXTREMITIES: No cyanosis or edema, non-tender, without signs of DVT. Medications and IVs: Active Medications Acetaminophen (Tylenol) 650 mg PO Q6H PRN PRN Reason: PAIN SCALE 1 TO 2 Citric Acid/Sodium Citrate (Sodium Citrate/Citric Acid Liq) 30 ml PO CREATIVE [employer] MUSIC THERAPIST [facility] Stop: 05/14/18 06:44 Last Admin: 05/10/18 07:31 Dose: 30 ml Cefazolin Sodium 2,000 mg/ (Sodium Chloride) 100 mls @ 200 mls/hr IV.SIG [employer] MUSIC THERAPIST [facility] Stop: 05/14/18 08:00 Lactated Ringer's (Lr 1000 Ml Inj) 1,000 mls @ 150 mls/hr IV.CONT .Q6H40M [facility] Last Admin: 05/13/18 06:28 Dose: Not Given Ibuprofen (Motrin) 800 mg PO Q8H PRN PRN Reason: cramping Last Admin: 05/13/18 04:13 Dose: 800 mg Magnesium Oxide (Mag-Ox) 400 mg PO DAILY [facility] Last Admin: 05/13/18 09:08 Dose: 400 mg Ondansetron HCl (Zofran Inj) 4 mg IV.PUSH Q6H PRN PRN Reason: NAUSEA OR VOMITING Oxycodone/Acetaminophen (Percocet 5/325 Mg) 1 tab PO Q4H PRN PRN Reason: PAIN SCALE 3 TO 5 Last Admin: 05/11/18 10:57 Dose: 1 tab Oxycodone/Acetaminophen (Percocet 5/325 Mg) 2 tab PO Q4H PRN PRN Reason: PAIN SCALE 6 TO 10 Last Admin: 05/13/18 09:09 Dose: 2 tab Sodium Chloride (Ns Flush) 2 ml IV.FLUSH PRN PRN PRN Reason: FLUSH AFTER USING IV ACCESS Sodium Chloride (Ns Flush) 2 ml IV.FLUSH BID MARTÍN Last Admin: 05/12/18 23:50 Dose: Not Given Assessment and Plan - Plan 33-year-old status post primary classical at 39 weeks 0 days secondary to large lower uterine segment fibroid and unstable lie 1. Postoperative day #3: Afebrile, vital signs stable, e d/c home today Male , circ in office, they did not pay 2. Classical : Discussed implications on her future pregnancies and requirement for at 36-37 weeks, 3. Fibroid uterus: Discussed that may recommend removal of fibroid to allow easier access to lower uterine segment with future pregnancies 4. Ventricular quadrigeminy: Patient had palpitations at time of her admission , her heart r ate is mostly normal, some episodes of bradycardia, patient asymptomatic. Her echo showed EF of 45%, and believe the EF is consistent with 57.9%. Recommended continuing magnesium c 400 mg daily and follow-up with a corporate event planner or PCP in 1-2 months. I provided patient her relevant records. - normal EKG other than aforementioned, TFTs and BMP WNL,
== END 2018-05-13 12:41 | disposition home or self-care (01) ==
LOC: H2E 05:52 → H1EA 11:06
PROVIDERS: ADMIT Obstetrics & Gynecology; ATTEND Obstetrics & Gynecology